=== PATIENT | female | born 1990 ===

== ENCOUNTER 2017-02-18 20:02 | Emergency (ER) | payer MEDICAID ==
[2017-02-18] MEDS ORDERED: Sodium Chloride 0.9% 1,000 ML IV ONE (21:36)
--- NOTE | 2017-02-18 21:36 | C.PDOC ---
History Of Present Illness Patient is a 26 y/o female brought to the ED by boyfriend for evaluation after taking extra psych medicines. Pt admits to feeling depressed. Otherwise, denies any suicidal ideation, or any physical complaints at this time. Time Seen by Provider: 02/18/17 21:36 Chief Complaint (Nursing): Medical Clearance History Per: Patient History/Exam Limitations: no limitations Onset/Duration Of Symptoms: Gradual Current Symptoms Are (Timing): Still Present Severity: None Pain Scale Rating Of: 0 Recent travel outside of the [place]: No Additional History Per: Family (boyfriend) Past Medical History Reviewed: Historical Data, Nursing Documentation, Vital Signs Vital Signs: Last Vital Signs Temp 98.3 F 02/18/17 22:42 Pulse 73 02/18/17 22:42 Resp 18 02/18/17 22:42 BP 106/71 02/18/17 22:42 Pulse Ox 100 02/18/17 22:42 - Medical History PMH: Asthma, Depression Family History: States: No Known Family Hx - Social History Hx Alcohol Use: No Hx Substance Use: No - Immunization History Hx Tetanus Toxoid Vaccination: No Hx Influenza Vaccination: No Hx Pneumococcal Vaccination: No Review Of Systems Constitutional: Negative for: Fever, Chills Cardiovascular: Negative for: Chest Pain, Palpitations Respiratory: Negative for: Shortness of Breath Gastrointestinal: Negative for: Nausea, Vomiting, Abdominal Pain Neurological: Negative for: Headache, Dizziness Psych: Positive for: Depression. Negative for: Suicidal ideation Physical Exam - Physical Exam Appears: Non-toxic, No Acute Distress Skin: Warm, Dry Head: Atraumatic, Normacephalic Eye(s): bilateral: EOMI Chest: Symmetrical Cardiovascular: Rhythm Regular, No Murmur Respiratory: No Rales, No Rhonchi, No Wheezing Extremity: Normal ROM Neurological/Psych: Oriented x3, Normal Speech ED Course And Treatment - Laboratory Results Result Diagrams: 02/18/17 21:50 02/18/17 21:50 ECG: Interpreted By Me, Viewed By Me ECG Rhythm: Sinus Rhythm (78), Nonspecific Changes O2 Sat by Pulse Oximetry: 99 (on RA) Pulse Ox Interpretation: Normal Progress Note: Labs, EKG ordered and reviewed. Patient was given IV fluids. patient was cleared for discharge by dr madden Reevaluation Time: 01:16 Reassessment Condition: Improved Disposition Counseled Patient/Family Regarding: Studies Performed, Diagnosis, Need For Followup - Disposition Disposition: HOME/ ROUTINE Disposition Time: 21:36 Condition: FAIR Instructions: Depression (DC) - Clinical Impression Clinical Impression: Depression - Scribe Statement The provider has reviewed the documentation as recorded by the Renata Wyatt Provider Attestation: All medical record entries made by the Renata were at my direction and personally dictated by me. I have reviewed the chart and agree that the record accurately reflects my personal performance of the history, physical exam, medical decision making, and the department course for this patient. I have also personally directed, reviewed, and agree with the discharge instructions and disposition.
[2017-02-18] MEDS ORDERED: Sodium Chloride 0.9% 1,000 ML ONE (21:50)
[2017-02-18 21:57] LABS: BASO # 0.1 K/uL (0.0-0.2); BASO % 1.2 % (0.0-2.0); EOS # 0.5 K/uL (0.0-0.7); EOS % 8.3 % (0.0-4.0); HEMATOCRIT 31.7 % (34.0-47.0); LYMPH # 2.4 K/uL (1.0-4.3); LYMPH % 40.2 % (20.0-40.0); MEAN CELL VOLUME 84.9 fL (81.0-99.0); MEAN CORPUSCULAR HEMOGLOBIN 27.5 pg (27.0-31.0); MEAN CORPUSCULAR HGB CONC 32.4 g/dL (33.0-37.0); MEAN PLATELET VOLUME 8.7 fL (7.2-11.7); MONO # 0.4 K/uL (0.0-0.8); MONO % 6.7 % (0.0-10.0); RED CELL DISTRIBUTION WIDTH 14.7 % (11.5-14.5); WHITE BLOOD COUNT 5.9 K/uL (4.8-10.8)
[2017-02-18 22:01] LABS: RBC URINE 1 /hpf (0-3); URINE BILIRUBIN NEGATIVE (NEGATIVE); URINE BLOOD NEGATIVE (NEGATIVE); URINE COLOR Yellow (YELLOW); URINE GLUCOSE (UA) NORMAL (Normal); URINE KETONE NEGATIVE (NEGATIVE); URINE LEUKOCYTE ESTERASE NEG Leu/uL (Negative); URINE PROTEIN NEGATIVE (NEGATIVE); URINE UROBILINOGEN NORMAL mg/dL (0.2-1.0); WBC URINE < 1 /hpf (0-5)
[2017-02-18 22:04] LABS: CHLORIDE 99 mmol/L (98-107); SODIUM 137 mmol/L (132-148)
[2017-02-18 22:06] LABS: BILIRUBIN,TOTAL 0.4 mg/dL (0.2-1.3); GFR AFRICAN-AMERICAN > 60
[2017-02-18 22:07] LABS: ALB/GLOB RATIO 1.3 (1.0-2.1); ALKALINE PHOSPHATASE 40 U/L (38-126); ALT/SGPT 18 U/L (9-52); AST/SGOT 21 U/L (14-36); BLOOD UREA NITROGEN 15 mg/dL (7-17); CALCIUM 8.4 mg/dl (8.6-10.4); CARBON DIOXIDE 28 mmol/L (22-30); GLUCOSE,RANDOM 81 mg/dL (65-105); TOTAL PROTEIN 6.9 g/dL (6.3-8.3)
[2017-02-18 22:08] LABS: ALCOHOL SERUM < 10 mg/dl (0-10)
[2017-02-19 01:27] VITALS: BP 100/60; PULSE 80; RESP 14; TEMP 97.5; O2SAT 98
--- NOTE | 2017-02-22 10:14 | CARD ---
APPROVED REPORT EKG Measurement Heart [id number] [place] [id number] <Conclusion> Normal sinus rhythm Normal ECG
== END 2017-02-19 01:26 | disposition home or self-care (01) ==
LOC: C.ER 20:02
DX: F32.9 Major depressive disorder, single episode, unspecified (principal)
CPT/HCPCS: 80053; 80320; 80324; 80329; 80345; 80346; 80349; 80353; 80358; 80361; 81001; 83992; 84703; 85025; 96360; 99283; J7040